=== PATIENT | female | born 2000 | race Caucasian/White ===

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

== ENCOUNTER 2018-08-22 20:53 | Emergency (ER) | payer MEDICAID, OTHER ==
[~2018-08-22] VITALS: Ht 152.4 cm; Wt 72.5 kg
[~2018-08-22 20:53] MED LIST: AMOX1TAB10 PO; NITR-58 PO; NPH10OT RIGHT EAR
[2018-08-22 21:04] VITALS: Ht 152.4 cm; Wt 72.5 kg
--- NOTE | 2018-08-22 22:58 | ERD ---
ER Documentation Chief Complaint Chief Complaint precordial pain x 1week HPI 18-year-old female presents to the emergency department complaining of sharp intermittent midsternal chest pain for the past 1.5 weeks which is worse with deep inspiration. She took [id number] medication with some relief. Patient denies fevers, chills, shortness of breath on exertion, or other symptoms at this time. ROS All systems reviewed and are negative except as per history of present illness. Medications Home Meds Active Scripts Ibuprofen* (Motrin*) 600 Mg Tab, 600 MG PO Q6, #30 TAB Prov:MARY BROWER PA-C 08/22/18 Nitrofurantoin Monohyd Macrocr* (Macrobid*) 100 Mg Capsr, 100 MG PO BID for 5 Days, CAP Prov:KESHAV HOWE PA-C 09/02/17 Neomycin/Polymyxin/Hydrocort* (Cortisporin* Otic) 10 Ml Susp, 4 DROP RIGHT EAR QID for 7 Days, EA Prov:PAYTON SHAW PA-C 09/20/16 Amoxicillin/Potassium Clav (Amox-Clav 875-125 mg Tablet) 875-125 mg Tab, 1 TAB PO BID for 7 Days, #14 TAB Prov:PAYTON SHAW PA-C 09/20/16 Allergies Allergies: Coded Allergies: No Known Allergy (Unverified , 08/22/18) PMhx/Soc Medical and Surgical Hx: pt denies Medical Hx, pt denies Surgical Hx Hx Alcohol Use: No Hx Substance Use: No Hx Tobacco Use: No FmHx Family History: No diabetes Physical Exam Vitals Vital Signs Date Temp Pulse Resp B/P (MAP) Pulse Ox O2 O2 Flow FiO2 Time Delivery Rate 08/23/18 97.7 16 16 137/83 94 Room Air 01:02 (101) 08/22/18 98.0 74 18 125/93 99 21:04 (104) Physical Exam Const: No acute distress Head: Atraumatic Eyes: Normal Conjunctiva ENT: Normal External Ears, Nose and Mouth. Neck: Full range of motion. No meningismus. Resp: Clear to auscultation bilaterally Cardio: Regular rate and rhythm, no murmurs. Reproducible midsternal chest pain to palpation. Abd: Soft, non tender, non distended. Normal bowel sounds Skin: No petechiae or rashes Back: No midline or flank tenderness Ext: No cyanosis, or edema Neur: Awake and alert Psych: Normal Mood and Affect Results 24 hrs Laboratory Tests Test 08/22/18 22:39 POC Beta HCG, Qualitative NEGATIVE [place] [id number] [place] [id number] Radiology Main Line: [phone] DIAGNOSTIC IMAGING REPORT Patient: MAXIMO VERNON : 2000 Age: 18 Sex: F MR #: [id number] DOS: 08/22/18 0000 Ordering MD: MARY BROWER PA-C Location: [facility] Room/Bed: PROCEDURE: XR Chest. CLINICAL INDICATION: Chest pain TECHNIQUE: Single frontal view of the chest was obtained COMPARISON: None FINDINGS: The heart and mediastinum are within normal limits. The lungs are clear. There is no pleural effusion or pneumothorax. IMPRESSION: No acute disease. RPTAT: HJES .Ramon Silvestre MD MD Date Time Electronically viewed and signed by .Ramon Silvestre MD, MD on 08/22/2018 23:16 .S/ CC: MARY BROWER PA-C [phone] Procedures/MDM 18-year-old female presents to the emergency department complaining of midsternal chest pain which is worse with deep inspiration. EKG and chest x-ray were within normal limits. History, physical examination, work-up most consistent with costochondritis. Low suspicion for acute coronary syndrome, aortic dissection, pulmonary embolism, pneumothorax, pneumonia, or other emergencies. Patient's symptoms are improved in the department. EKG: Interpreted by ED physician. Rate/Rhythm: Normal Sinus Rhythm with a rate of 60 bpm[address] QRS, ST, T-waves: No changes consistent w/ acute ischemia Impression: No evidence of ischemia or arrhythmia Patient's thoracic symptoms have stabilized while in the department and are stable for outpatient follow up. Exam and work up not consistent w/ ischemia, arrhythmia, PE or dissection. Departure Diagnosis: Primary Impression: Chest wall pain Condition: Fair Patient Instructions: Chest Wall Pain, Costochondritis Additional Instructions: Follow up with your PCP within the next 1-3 days for a repeat evaluation. If you require a referral to a specialist, your Primary Care Provider may be able to provide this for you. In most patient cases, a referral is not required. If you have further questions regarding this matter, please ask your Primary Care Provider. Return the the emergency department immediately if symptoms worsen or change. If you have any questions regarding medications, ask your pharmacist or us before you leave. If any adverse reactions, occur while taking your medications, discontinue the treatment and return to the emergency department immediately. If any new or worsening symptoms, uncontrolled fevers, or other unexplained symptoms occur, return to the emergency department immediately. Take your medications as directed, and complete the entire course of treatment. MARY BROWER PA-C Aug 22, 2018 22:58
[2018-08-22] MEDS ORDERED: IBUP-1542 PO (23:22)
[2018-08-23 01:02] VITALS: BP 137/83; PULSE 16; RESP 16
== END 2018-08-23 01:01 | disposition home or self-care (01) ==
LOC: FTE 20:53
DX: R07.89 Other chest pain (principal)
CPT/HCPCS: 71045; 81025; 93005